=== PATIENT | female | born 1970 | race Caucasian/White ===

== ENCOUNTER 2020-09-03 05:03 | Emergency (ER) | payer OTHER ==
[2020-09-03 06:06] LABS: HEMOGLOBIN 11.2 gm/dl (12.3-15.3); RED BLOOD COUNT 4.01 M/UL (4.00-5.10); WHITE BLOOD COUNT 10.9 K/UL (4.5-11.0)
[2020-09-03] MEDS ORDERED: CLINDAMYCIN HC150 MG PO (06:55)
== END 2020-09-03 14:30 | disposition home or self-care (01) ==
LOC: ER1 05:03
PROVIDERS: Student in an Organized Health Care Education/Training Program
DX: S61.101A Unspecified open wound of right thumb with damage to nail, initial encounter (principal); I10 Essential (primary) hypertension; E03.9 Hypothyroidism, unspecified; F17.200 Nicotine dependence, unspecified, uncomplicated; Z90.49 Acquired absence of other specified parts of digestive tract; Z88.0 Allergy status to penicillin; W23.0XXA Caught, crushed, jammed, or pinched between moving objects, initial encounter
CPT/HCPCS: 73130; 80307; 85025; 90471; 90715; 96374; 96375; 99284; J2270; J2405